=== PATIENT | female | born 1965 | race Caucasian/White ===

== ENCOUNTER → 2016-08-19 | Outpatient (CLI) | payer MEDICARE ==
--- NOTE | 2016-08-19 12:45 | KCIC ---
Knee three views bilateral Indication: Chronic bilateral knee pain. Time of exam 12:18 p.m. Right knee does show some mild medial compartmental joint space narrowing. Articular surfaces are smooth. Similar findings in the left knee are also noted. There are no fractures. There is no joint effusion. Impression: Mild medial compartmental joint space narrowing. No other significant abnormality is detected. Electronically signed by: James Mcgarry MD (Aug 19, 2016 12:44:12)
== END | disposition home or self-care (01) ==
LOC: KCIC 11:58 → EDBD 11:58
PROVIDERS: ATTEND Nurse Practitioner Family
DX: M17.0 Bilateral primary osteoarthritis of knee (principal); G89.29 Other chronic pain
CPT/HCPCS: 73562

== ENCOUNTER → 2017-07-20 | Outpatient (CLI) | payer MEDICARE | END | disposition home or self-care (01) | LOC: KCIC US 13:56 | DX: Z12.31 Encounter for screening mammogram for malignant neoplasm of breast (principal); N63.0 Unspecified lump in unspecified breast; M81.0 Age-related osteoporosis without current pathological fracture; R22.1 Localized swelling, mass and lump, neck; Z79.52 Long term (current) use of systemic steroids | CPT/HCPCS: 76536; 77063; 77067; 77080 ==

== ENCOUNTER → 2017-07-25 | Outpatient (CLI) | payer MEDICARE | END | disposition home or self-care (01) | LOC: KCIC MAMMO 10:47 | DX: R92.0 Mammographic microcalcification found on diagnostic imaging of breast (principal) | CPT/HCPCS: 77065 ==